=== PATIENT | female | born 1965 | race Caucasian/White ===

== ENCOUNTER 2017-01-06 08:35 | Day surgery (SDC) | payer BC ==
[~2017-01-06] VITALS: Ht 154.9 cm; Wt 104.3 kg
[~2017-01-06 08:35] MED LIST: OMEPRAZOLE20 MG PO; PLAQUENIL200 MG PO; PROGESTERONE100 MG PO; VIVELLE-DOT1 PATC1 TD
[2017-01-06] MEDS ORDERED: ALEVE220 MG PO (08:56)
[2017-01-06] MEDS ORDERED: HYDROCODON-ACE1 EA11 PO (11:36)
--- NOTE | 2017-01-06 11:44 | NUR ---
01/06/17 1144 AnalisaGrover azevedo SAT 100, O2 DECREASED TO 6L .
--- NOTE | 2017-01-06 12:10 | NUR ---
PT ALERT AND AWAKE. DENIES C/O. CALL LIGHT IN LAP.
--- NOTE | 2017-01-07 07:59 | OR ---
[facility] [address] [place], [place] [address] Signed DATE OF PROCEDURE: 01/06/17 PREOPERATIVE DIAGNOSIS: Displaced 5th metatarsal fracture proximal. POSTOPERATIVE DIAGNOSIS: Displaced 5th metatarsal fracture proximal. PROCEDURE PERFORMED Open reduction and internal fixation, right 5th metatarsal. SURGEON: Jared Mcpherson MD. ANVILSMITH Beatriz Deng. Beatriz was present for the entire surgery and was critical in positioning and holding the leg during the screw placement and closure. ANESTHESIA: General. BLOOD LOSS: Minimal. TOURNIQUET TIME: 0. IMPLANTS: Synthes 4.5 headless screw 50 mm. BRIEF HISTORY Aleksander is a 51-year-old female suffered a displaced Cortez fracture of her 5th metatarsal. Risks and benefits of operative treatment discussed with her and she elected to proceed. DESCRIPTION OF PROCEDURE Once consent was obtained, she was ta atif the operating room, and after adequate anesthesia, placed on the operating table. All downside pressure points well padded. A well-padded proximal thigh tourniquet was placed. The leg was then prepped and draped in the standard sterile fashion. A 1 cm incision was made proximal to the 5th metatarsal and blunt dissection using a Crile was taken down to the tip of the bone. The guide pin was then placed on the tip of the bone and aligned with the metatarsal shaft. It was taken all way to the end of the metatarsals. The proximal end was then over drilled using the stop drill. It was measured to 50 and a 50 mm screw placed over the guide pin and advanced until was completely within the bone. Excellent compression was obtained. The guide pin was then removed. Final radiograph showed excellent reduction and placement of the screw. The wound was closed again with antibiotic solution, closed with 3-0 nylon and dressed with Adaptic ABD and Vinnie wrap. She was placed back in a fracture boot. She tolerated the procedure well. All sponge, needle, instrument counts were correct. Electronically Signed By: JARED MCPHERSON MD 01/07/17 0759 PATIENT NAME: ALEKSANDER LAGUNA OPERATIVE REPORT DATE OF : 65 PHYSICIAN: JARED MCPHERSON MD REPORT #: [id number] REPORT IS CONFIDENTIAL AND NOT TO BE RELEASED WITHOUT AUTHORIZATION [address] [place] [address] Signed Jared Mcpherson MD BA/Modl /[id number] cc: Eloy Mckeon MD Electronically Signed By: JARED MCPHERSON MD 01/07/17 0759 PATIENT NAME: ALEKSANDER LAGUNA OPERATIVE REPORT DATE OF : 65 PHYSICIAN: JARED MCPHERSON MD REPORT #: [id number] REPORT IS CONFIDENTIAL AND NOT TO BE RELEASED WITHOUT AUTHORIZATION
== END 2017-01-06 13:30 | disposition home or self-care (01) ==
LOC: DS 08:35
PROVIDERS: Specialist
PROC: 0QSN04Z Reposition Right Metatarsal with Internal Fixation Device, Open Approach (ICD-10-PCS; principal; 2017-01-06 10:45)
DX: S92.351A Displaced fracture of fifth metatarsal bone, right foot, initial encounter for closed fracture (principal); D64.9 Anemia, unspecified; K21.9 Gastro-esophageal reflux disease without esophagitis; Z90.89 Acquired absence of other organs; Z88.2 Allergy status to sulfonamides; Z98.890 Other specified postprocedural states
CPT/HCPCS: 01830; 64445; 73620; 76942; C1713; J0690; J1100; J1885; J2250; J2405; J2704; J2795; J3010; J7120

== ENCOUNTER 2021-11-08 12:38 | Day surgery (SDC) | payer OTHER ==
[~2021-11-08] VITALS: Ht 154.9 cm; Wt 105.9 kg
[~2021-11-08 12:38] MED LIST changes: +ALEVE220 MG PO; +HYDROCODON-ACE1 EA11 PO
[2021-11-08] MEDS ORDERED: LISINOPRIL10 MG PO (12:52)
--- NOTE | 2021-11-08 14:27 | NUR ---
11/08/21 1427 Lenora Mcintosh 1423- PT ARRIVES TO PACU EASILY AROUSABLE TO VOICE. PT REPORTS NO PAIN OR NAUSEA AND FALLS INSTANTLY BACK TO SLEEP WHEN NOT BEING TALKED TO. RESP EVEN AND UNLABORED. OXYGEN SAT HIGH 90'S TO 100% ON 3L VIA OXYMASK.
--- NOTE | 2021-11-09 15:57 | OR ---
[facility] [address] [place], [place] [address] Signed DATE OF OPERATION: 11/08/2021 SURGEON: Toñito Cadena MD PREOPERATIVE DIAGNOSES: 1. Gastroesophageal reflux symptoms. 2. Persistent episodic right upper quadrant pain, biliary workup negative. 3. Colon screening. POSTOPERATIVE DIAGNOSES: 1. Hiatal hernia without esophagitis. 2. Sigmoid diverticulosis. PROCEDURES: 1. Esophagogastroduodenoscopy with biopsy. 2. Total colonoscopy to cecum. ANESTHESIA: Intravenous sedation, fentanyl 200 mcg and Versed 9 mg total. INDICATION: This morbidly obese 56-year-old white woman is a patient of Ms. Moe Cintron and was referred with right upper abdominal pain that was "constant." This has been going on a long time. She has symptoms that worsen with various body maneuvers. She has had an ultrasound showing no sign of stones in the site. A CCK-HIDA test showing an ejection fraction of 70% with no significant reproduction of symptoms. She has been treated with omeprazole for reflux disease, which has been ineffective. She does have strong family history of biliary disease in a mother and sister. In addition, she describes "gas" and other GI symptoms. She has had hysterectomy in the past. She is admitted at this time to undergo upper endoscopy and colonoscopy to better characterize the problem, understand the risks of bleeding, infection, and perforation. FINDINGS: Upper endoscopy showed only a hiatal hernia but no sign of esophagitis or gastritis. CLOtest was negative. On colonoscopy, the prep was excellent and complete colonoscopy was done to the cecum. There were numerous diverticula of the sigmoid and left colon, but no other findings of concern. Electronically Signed By: TOÑITO CADENA MD 11/09/21 1557 PATIENT NAME: ALEKSANDER LAGUNA OPERATIVE REPORT DATE OF : 65 REPORT #: [id number] PHYSICIAN: TOÑITO CADENA MD PCP: MOE CINTRON REPORT IS CONFIDENTIAL AND NOT TO BE RELEASED WITHOUT AUTHORIZATION [facility] [address] [place], [place] [address] Signed PROCEDURE IN DETAIL: The patient was brought to the endoscopy suite, given lidocaine hypopharyngeal anesthesia and placed in lateral decubitus position given intravenous sedation to the point of slurred speech and nystagmus with full cardiopulmonary monitoring. A bite block was placed. An Olympus video upper endoscope was passed in the hypopharynx, the vocal cords were normal. Scope was advanced to the esophagus and appeared entirely normal. Scope was advanced to the stomach, which was insufflated with air. Rugal folds were normal as was the antral motility. Pylorus was normal. Scope was passed through into the duodenum, which was normal. Biopsies were obtained to assess for celiac disease. The scope was withdrawn and biopsies were taken proximal and antral portions of stomach for both ALDA and pathologic testing. Retroflexed view did confirm hiatal hernia. Scope was straightened, withdrawn and biopsies taken of normal-appearing distal esophageal mucosa. Additional biopsies were obtained of the midesophagus to assess for eosinophilic changes. The scope was withdrawn, removed and plans were made for colonoscopy. Additional sedation was given. Digital rectal examination performed showing an external hemorrhoid posteriorly, but no other findings of concern. An Olympus video colonoscope was passed in the rectum and manipulated throughout the colon noting diverticular change of the sigmoid and left colon. The cecum was ultimately intubated and found to be entirely normal. Scope was withdrawn from that point and examination throughout showed no sign of polyps or colitis, only diverticular changes as described. Retroflexed view of the rectum was normal as well. Scope was removed. The patient was taken to recovery room in good condition. CONCLUDING DIAGNOSES: 1. Hiatal hernia without esophagitis. 2. Diverticular changes of the sigmoid. PLAN: It may well be a consideration to proceed with cholecystectomy based on her clinical symptoms and family history and findings on ultrasound which showed the visible the gallbladder. We will review this with the patient and her and come to a conclusion in that regard. In the meantime, she will continue with her PPI medication, omeprazole. MD TAYE Dowell/AYAD Electronically Signed By: TOÑITO CADENA MD 11/09/21 1557 PATIENT NAME: ALEKSANDER LAGUNA OPERATIVE REPORT DATE OF : 65 REPORT #: [id number] PHYSICIAN: TOÑITO CADENA MD PCP: MOE CINTRON REPORT IS CONFIDENTIAL AND NOT TO BE RELEASED WITHOUT AUTHORIZATION [facility] [address] [facility] [place] [address] Signed /[id number] Copies: ~ Electronically Signed By: TOÑITO CADENA MD 11/09/21 1557 PATIENT NAME: ALEKSANDER LAGUNA OPERATIVE REPORT DATE OF : 65 REPORT #: [id number] PHYSICIAN: TOÑITO CADENA MD PCP: MOE CINTRON REPORT IS CONFIDENTIAL AND NOT TO BE RELEASED WITHOUT AUTHORIZATION
--- NOTE | 2021-11-12 12:35 | PATH ---
[facility] [address] [place], [place] [address] Signed SPECIMEN(S): A DUODENAL BIOPSY SPECIMEN(S): B ANTRUM BIOPSY SPECIMEN(S): C LOWER ESOPHAGEAL BIOPSY SPECIMEN(S): D MID ESOPHAGEAL BIOPSY SPECIMEN SOURCE: A. DUODENAL BIOPSY B. ANTRUM BIOPSY C. LOWER ESOPHAGEAL BIOPSY D. MID ESOPHAGEAL BIOPSY CLINICAL HISTORY: GERD; initial screening colonoscopy. Post: Hiatal hernia; diverticulosis FINAL PATHOLOGIC DIAGNOSIS: A. Duodenal biopsy: - Benign duodenal mucosa, negative for specific diagnostic abnormality. B. Antrum biopsy: - Benign gastric-type mucosa with focal slight chronic inflammation. - Negative for evidence of Helicobacter organisms on routine HE stained sections. C. Lower esophageal biopsy: - Benign esophageal epithelium, negative for increased epithelial eosinophils. - Negative for glandular mucosa. D. Mid esophageal biopsy: - Benign esophageal epithelium, negative for increased epithelial eosinophils. JVR:[facility]:C2NR MICROSCOPIC EXAMINATION: Histologic sections of all submitted blocks are examined by light microscopy. These findings, together with the gross examination, support the pathologic diagnosis. GROSS DESCRIPTION: Four specimens are received in four containers, labeled "Lexx, Aleksander." A. The specimen, labeled " LagunaAleksander, biopsy, duodenum," is received in formalin and consists of three shahid soft tissue fragments that measure 0.2 to 0.3 cm in greatest dimension. The specimen is entirely submitted in cassette (A1). B. The specimen, labeled " Laguna, Aleksander, antrum biopsy," is received in formalin and consists of two shahid soft tissue fragments that measure 0.4 and 0.5 PATIENT NAME: ALEKSANDER LAGUNA PATHOLOGY DATE OF : 65 REPORT #: [id number] PHYSICIAN: [facility] PCP: MOE CINTRON REPORT IS CONFIDENTIAL AND NOT TO BE RELEASED WITHOUT AUTHORIZATION [facility] [address] [place], [place] [address] Signed cm in greatest dimension. The specimen is entirely submitted in cassette (B1). C. The specimen, labeled " Laguna, Aleksander, biopsy, distal esophagus," is received in formalin and consists of three white-shahid soft tissue fragments that measure 0.2 to 0.4 cm in greatest dimension. The specimen is entirely submitted in cassette (C1). D. The specimen, labeled " Laguna, Aleksander, biopsy, mid esophagus," is received in formalin and consists of two white-shahid soft tissue fragments that measure 0.6 and 0.7 cm in greatest dimension. The specimen is entirely submitted in cassette (D1). FB (under the direct supervision of a pathologist) The Gross Description was prepared using a voice recognition system. The report was reviewed for accuracy; however, sound-alike word errors, addition and/or deletions may occur. If there is any question about this report, please contact Client Services. PERFORMING LABORATORY: The technical component was performed by [facility], [address] [place] [id number] (CLIA# [id number]). Professional interpretation was performed by [facility], [address] [place] [id number] (CLIA#: [id number]). Diagnostician: Kodi Villar MD Pathologist Electronically Signed 11/12/2021 Copies: ~ PATIENT NAME: MICHAEL LAGUNAN [facility] DATE OF : 65 REPORT #: [id number] PHYSICIAN: [facility] PCP: MOE CINTRON REPORT IS CONFIDENTIAL AND NOT TO BE RELEASED WITHOUT AUTHORIZATION
== END 2021-11-08 15:04 | disposition home or self-care (01) ==
LOC: OPS 12:38 → DS 12:43 → OPS 14:00
PROVIDERS: ATTEND Surgery
PROC: 0DB68ZX Excision of Stomach, Via Natural or Artificial Opening Endoscopic, Diagnostic (ICD-10-PCS; principal; 2021-11-08 14:00)
PROC: 0DJD8ZZ Inspection of Lower Intestinal Tract, Via Natural or Artificial Opening Endoscopic (ICD-10-PCS; 2021-11-08 14:00)
DX: K29.50 Unspecified chronic gastritis without bleeding (principal); Z12.11 Encounter for screening for malignant neoplasm of colon; K44.9 Diaphragmatic hernia without obstruction or gangrene; K57.30 Diverticulosis of large intestine without perforation or abscess without bleeding; E66.01 Morbid (severe) obesity due to excess calories; M35.00 Sjogren syndrome, unspecified; Z90.711 Acquired absence of uterus with remaining cervical stump; K21.00 Gastro-esophageal reflux disease with esophagitis, without bleeding; Z83.79 Family history of other diseases of the digestive system; Z88.2 Allergy status to sulfonamides
CPT/HCPCS: 99153; G0500; J2250; J3010; J7121